=== PATIENT | male | born 1985 | race Caucasian/White ===

== ENCOUNTER 2020-01-03 17:35 | Emergency (ER) | payer SELFPAY ==
[~2020-01-03] VITALS: Ht 170.2 cm; Wt 70.3 kg
[2020-01-03 17:36] VITALS: Ht 170.2 cm; Wt 70.3 kg
[2020-01-03 22:59] VITALS: BP 120/59
== END 2020-01-03 22:59 | disposition home or self-care (01) ==
LOC: ED 17:35
DX: J02.9 Acute pharyngitis, unspecified (principal); Z20.828 Contact with and (suspected) exposure to other viral communicable diseases
CPT/HCPCS: U0003-CS